=== PATIENT | male | born 1985 | race Caucasian/White ===

== ENCOUNTER 2024-12-20 15:39 | Emergency (ER) | payer OTHER ==
[~2024-12-20 15:39] MED LIST: Iopamidol 370 76% 100 ML VIAL ONE
[2024-12-20] MEDS ORDERED: Ondansetron PF 4 MG/2 ML Vial ONE (16:02)
[2024-12-20 16:39] LABS: ALT (SGPT) 17 U/L (Less than 45); AST (SGOT) 29 U/L (11-34); Albumin 4.8 g/dL (3.1-4.5); Alkaline Phosphatase 73 U/L (40-110); Anion Gap 21 mmol/L (10-20); BUN (Urea Nitrogen) 16 mg/dL (8.9-20.6); Bilirubin, Total 1.2 mg/dL (0.3-1.2); Calc. Creatinine Clearance 0 mL/min (70-130); Calcium 10.0 mg/dL (7.8-10.44); Carbon Dioxide 21 mmol/L (22-29); Chloride 101 mmol/L (98-107); Globulin 3.3 g/dL (2.4-3.5); Glucose 98 mg/dL (70-105); Lipase 12 U/L (8-78); Potassium 4.1 mmol/L (3.5-5.1); Sodium 139 mmol/L (136-145)
[2024-12-20 16:52] LABS: #Basophils 0.1 thou/uL (0.0-0.2); #Eosinophils 0.0 thou/uL (0.0-0.7); #Lymphocytes 1.0 thou/uL (1.20-3.40); #Monocytes 1.1 thou/uL (0.11-0.59); #Neutrophils 11.5 thou/uL (1.40-6.50); %Basophils 1.0 % (0.0-1.0); %Eosinophils 0.0 % (0.0-10.0); %Lymphocytes 7.1 % (21.0-51.0); %Monocytes 7.8 % (0.0-10.0); %Neutrophils 84.1 % (42.0-75.0); Hematocrit 52.8 % (42.0-52.0); Hemoglobin 18.6 g/dL (14.0-18.0); Mean Corpuscular Hemoglobin 28.9 pg (27.0-31.0); Mean Corpuscular Volume 82.0 fl (78.0-98.0); Platelet Count 249 10x3/uL (130-400); Red Blood Cell (RBC) Count 6.45 mill/uL (4.70-6.10); White Blood Cell (WBC) Count 13.7 10x3/uL (4.8-10.8)
[2024-12-20 18:08] LABS: Glucose, Urine (Dipstick) Negative (Negative); Leukocyte Negative (Negative); Protein, Urine (Dipstick) Trace mg/dL (Neg-Trace); Specific Gravity, Urine 1.020 (1.005-1.030)
[2024-12-20 18:09] LABS: CAUTI Indications for Culture Pelvic or flank pain; WBC/HPF 0-3 HPF (0-3)
[2024-12-20 18:10] LABS: Urine Culture Reflex No No
== END 2024-12-20 18:25 | disposition short-term general hospital (02) ==
LOC: NAV ERS 15:39
DX: K81.9 Cholecystitis, unspecified (principal); Z86.73 Personal history of transient ischemic attack (TIA), and cerebral infarction without residual deficits
CPT/HCPCS: 74177; 80053; 81001; 83605; 83690; 85025; 96361; 96374; 96375; J7030; Q9967